=== PATIENT | female | born 1995 | race Caucasian/White ===

== ENCOUNTER → 2022-12-10 15:00 | Outpatient (BNVA) | payer SELFPAY | PROVIDERS: Visit Provider Nurse Practitioner Women's Health | DX: E66.01 Morbid (severe) obesity due to excess calories (principal); Z68.41 Body mass index [BMI] 40.0-44.9, adult; N92.6 Irregular menstruation, unspecified; Z12.4 Encounter for screening for malignant neoplasm of cervix | CPT/HCPCS: 83036; 84146; 84439; 84443; 84702; 88175 ==

== ENCOUNTER 2023-11-20 16:12 | Emergency (ER) | payer SELFPAY ==
--- NOTE | 2023-11-20 16:13 | XRR_ITS ---
PROCEDURE INFORMATION: Exam: XR Chest Exam date and time: 11/20/2023 5:19 PM Age: 28 years old Clinical indication: Pain; Chest pressure; Additional info: Cp TECHNIQUE: Imaging protocol: Radiologic exam of the chest. Views: 1 view. COMPARISON: CT abdomen pelvis w con* [id number] 04/10/2019 8:10 PM FINDINGS: Lungs: Unremarkable. No consolidation. Pleural spaces: Unremarkable. No pleural effusion. No pneumothorax. Heart/Mediastinum: Unremarkable. No cardiomegaly. Bones/joints: Unremarkable. XR/XR chest 1V portable [id number] IMPRESSION: No acute findings.
--- NOTE | 2023-11-20 16:17 | ECG_ITS ---
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 Measurements Intervals [place] Rate: 51 P: 26 OK: 154 QRS: 7 QRSD: 91 T: 26 QT: 465 QTc: 431 Interpretive Statements SINUS BRADYCARDIA WITH SINUS ARRHYTHMIA Diffuse early repolarization change No previous ECG available for comparison Electronically Signed On 11-21-2023 8:34:23 CDT by Vera Soni M.D. [id number]
[2023-11-20 16:35] VITALS: BP 121/79; PULSE 66; RESP 17; TEMP 36.6; O2SAT 98; BMI 37.2
--- NOTE | 2023-11-20 16:39 | ECG_ITS ---
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 Measurements Intervals [place] Rate: 56 P: 31 SC: 148 QRS: 13 QRSD: 94 T: 27 QT: 442 QTc: 429 Interpretive Statements SINUS BRADYCARDIA Compared to ECG 11/20/2023 16:17:33 Sinus arrhythmia no longer present Electronically Signed On 11-21-2023 8:35:23 CDT by Vera Soni M.D. [email or web address]/[id number]
[2023-11-20 17:07] VITALS: BP 105/67; PULSE 65; RESP 16; O2SAT 98
--- NOTE | 2023-11-20 17:15 | ED_ITS ---
HPI - Chest Pain 2 General: Chief Complaint: Chest Pain Stated Complaint: tight feeling around chest sob Time Seen by Provider: 11/20/23 16:58 History of Present Illness: 28-year-old female comes in today for so me tightness in the chest that occurred in 2 separate episodes lasting about an hour today. Patient reports no chronic medical problems. Patient does have an occasional migraine that she uses Excedrin for. 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 Patient reports that she was just sitting when she felt like she had a stitch in her left chest wall. Patient reports it first resolved this morning then she had another episode this afternoon. Patient appears nontoxic. Patient appears in no acute distress. Review of Systems 2 General: Reports: 10 or more systems reviewed and unremarkable except in HPI and below PFSH ED 2 PFSH: Medical History Depression managed with monthly counseling No pertinent past medical history neghx:htn,dm,thyroid,dvt/pe PCP: Doesn't have one Surgical History No pertinent past surgical history Family History Grandmother Breast cancer Maternal Hypertension Maternal Thyroid disease Maternal Family/Other Diabetes Great Aunt/Maternal Denies family history of Colon cancer Ovarian cancer Heart disease Uterine cancer Stroke Social History Smoking and tobacco/nicotine status: never used tobacco/nicotine Alcohol intake: never Substance/Drug Use: never Physical Exam 2 Const: COMMON NORMALS: alert HENMT: COMMON NORMALS: normocephalic HEAD & SCALP: normocephalic MOUTH: Normal oral and palatal mucosa present Neck/C-Spine: COMMON NORMALS: full ROM Chest: COMMONS NORMALS: normal palpation of entire chest wall Resp: COMMON NORMALS: normal respiratory effort and clear to auscultation bilaterally AUSCULTATION: clear to auscultation bilaterally Cardio: COMMON NORMALS: regular rate and regular rhythm RATE: regular rate RHYTHM: regular rhythm Back/Pelvis: COMMON NORMALS: thoracic and lumbar spine normal to inspection Extremity: COMMON NORMALS: full ROM Neuro: SENSORIUM/ORIENTATION: Yes alert Skin: COMMON NORMALS: turgor normal GENERAL SKIN EXAM: turgor normal Course 2 Vital Signs: Vital signs: Vital Signs Temperature 97.9 F 11/20/23 16:35 Pulse Rate 77 11/20/23 19:02 Respiratory Rate 16 11/20/23 19:02 Blood Pressure 105/65 11/20/23 19:02 Pulse Oximetry 94 11/20/23 19:02 Oxygen Delivery Me thod Room Air 11/20/23 19:02 MDM - Chest Pain Medical Decision Making 28-year-old female comes in today for complaints of left chest wall pain. On exam lungs were clear to auscultation. Skin was warm and dry. Vital signs are normal. No palpable tenderness is noted in the chest. No palpable tenderness is noted in the abdomen. Differential diagnosis includes but not limited to costochondritis, chest wall tenderness, muscles pain, ACS unlikely, asthma unlikely, gastritis, GERD, gallbladder disease. White count noted elevated at 18,000. CMP was unremarkable. Troponin was less than 6. Urinalysis showed increased white blood cells and leukocyte esterases. Chest x-ray was normal. EKG was unremarkable. Reviewed exam with patient recommended treatment for UTI. Recommend follow-up with primary care for further evaluation and treatment of chest pain. This time I believe the chest pain may be secondary to the infection but there is seems to be no signs of pneumonia or heart disease. Lab Data 11/20/23 17:00 11/20/23 17:00 Radiology Impressions Chest X-Ray 11/20/23 16:13 IMPRESSION: No acute findings. Laboratory Results WBC 18.04 10^3/uL (3.29-11.43) H 11/20/23 17:00 RBC 4.78 10^6/uL (3.85-5.65) 11/20/23 17:00 Hgb 14.80 g/dL (11.27-16.99) 11/20/23 17:00 Hct 44.8 % (36-47) 11/20/23 17:00 MCV 93.7 fl (85-98) 11/20/23 17:00 MCH 31.0 pg (27-33) 11/20/23 17:00 MCHC 33.0 g/dL (30-55) 11/20/23 17:00 RDW 12.0 % (12.1-15.1) L 11/20/23 17:00 Plt Count 330 10^3/cmm (157-399) 11/20/23 17:00 MPV 10.6 fL (7.4-10.4) H 11/20/23 17:00 Neut % (Auto) 84.1 % 11/20/23 17:00 Lymph % (Auto) 8.8 % 11/20/23 17:00 [place] % (Auto) 6.2 % 11/20/23 17:00 Eos % (Auto) 0.1 % 11/20/23 17:00 Baso % (Auto) 0.3 % 11/20/23 17:00 Neut # (Auto) 15.18 10^3/uL (1.8-7.7) H 11/20/23 17:00 Lymph # (Auto) 1.6 10^3/uL (0.8-4.8) 11/20/23 17:00 [place] # (Auto) 1.1 10^3/uL (0.2-0.9) H 11/20/23 17:00 Eos # (Auto) 0.0 10^3/uL (0.0-0.8) 11/20/23 17:00 Baso # (Auto) 0.1 10^3/uL (0.0-0.1) 11/20/23 17:00 Nucleated RBC % (auto) 0 % 11/20/23 17:00 Nucleated RBCs # 0.0 /100WBC 11/20/23 17:00 Sodium 137 mmol/L (136-145) 11/20/23 17:00 Potassium 4.0 mmol/L (3.5-5.1) 11/20/23 17:00 Chloride 104 mmol/L (98-107) 11/20/23 17:00 Carbon Dioxide 23 mmol/L (22-29) 11/20/23 17:00 Anion Gap 14.0 (5-19) 11/20/23 17:00 BUN 10 mg/dL (6-20) 11/20/23 17:00 Creatinine 0.6 mg/dL (0.5-0.9) 11/20/23 17:00 GFR Calculation 117.4 mL/min (90-130) 11/20/23 17:00 Glucose 160 mg/dL (65-115) H 11/20/23 17:00 Calculated Osmolality 286 mOsm/kg (285-295) 11/20/23 17:00 Calcium 8.7 mg/dL (8.5-10.5) 11/20/23 17:00 Total Bilirubin 0.6 mg/dL (0.15-1.2) 11/20/23 17:00 AST 95 U/L (0-32) H 11/20/23 17:00 ALT 71 U/L (0-33) H 11/20/23 17:00 Alkaline Phosphatase 97 U/L (35-105) 11/20/23 17:00 Troponin T Baseline < 6 ng/L (0-10) 11/20/23 18:37 Total Protein 7.7 g/dL (6.6-8.7) 11/20/23 17:00 Albumin 4.3 g/dL (3.5-5.2) 11/20/23 17:00 Globulin 3.4 g/dL (1.3-4.6) 11/20/23 17:00 Lipase 56 U/L (13-60) 11/20/23 17:00 HCG, Qual Negative (Negative) 11/20/23 17:00 Urine Color Yellow (Yellow) 11/20/23 17:48 Urine Appearance Clear (CLEAR) 11/20/23 17:48 Urine pH 5 (5-7) 11/20/23 17:48 Ur Specific [place] 1.020 (1.005-1.030) 11/20/23 17:48 Urine Protein Neg (Negative) 11/20/23 17:48 Urine Glucose (UA) Norm (Normal) 11/20/23 17:48 Urine Ketones Negative (Negative) 11/20/23 17:48 Urine Blood Neg (Negative) 11/20/23 17:48 Urine Nitrate Negative (Negative) 11/20/23 17:48 Urine Bilirubin Neg (Negative) 11/20/23 17:48 Urine Urobilinogen Norm mg/dL (Negative) 11/20/23 17:48 Ur Leukocyte Esterase 2+ (Negative) H 11/20/23 17:48 Urine RBC None /hpf (0-2) 11/20/23 17:48 Urine WBC 10-15 /hpf (0-5) H 05/26/24 17:48 Ur Squamous Epith Cells 0-4 /hpf (0-5) H 11/20/23 17:48 Amorphous Sediment Not Reportable 11/20/23 17:48 Urine Bacteria Trace /hpf (NONE) 11/20/23 17:48 Urine Mucus 1+ /hpf 11/20/23 17:48 All radiology interpretation(s) finalized by discharge EKG Data EKG 1: I personally reviewed and interpreted this EKG as follows: EKG interpretation date: 11/20/23 EKG interpretation time: 16:30 Prior EKG tracings: not available for review Interpretation: EKG shows a sinus bradycardia with a regular rate at [address] elevation is noted. No ectopy is noted. No prior exam was available for comparison. Computer generated interpretation: Sinus bradycardia with sinus arrhythmia, borderline EKG, unconfirmed report. EKG 2: I personally reviewed and interpreted this EKG as follows: EKG interpretation date: 11/20/23 EKG interpretation time: 17:54 Prior EKG tracings: available for review Interpretation: EKG shows sinus bradycardia with a regular rate at [address] elevation is noted. No ectopy is noted. No changes are noted from prior exam. Computer generated interpretation: Sinus bradycardia, borderline EKG, unconfirmed report. Discharge Plan Discharge Patient Disposition: Home Clinical Impression: Chest pain Qualifiers: Chest pain type: unspecified Qualified Code(s): R07.9 - Chest pain, unspecified UTI (urinary tract infection) Qualifiers: Urinary tract infection type: acute cystitis Hematuria presence: without hematuria Qualified Code(s): N30.00 - Acute cystitis without hematuria Condition: Stable Prescriptions: New cephalexin 500 mg capsule 500 mg PO BID 7 Days Qty: 14 0RF No Action norethindrone-e.estradiol-iron [.5/30 (28)] 1.5 mg-30 mcg (21)/75 mg (7) tablet 1 tab PO DAILY Qty: 84 0RF Discharge Orders: Discharge ED (Routine); Ordered 11/20/23 Ordered By: Jacob Mccrary Discharge Diet: Usual diet Discharge Activity: Increase activity as tolerated Patient Instructions: Chest Pain (ED) Activity Restrictions/Additional Instructions: Drink plenty of water and fluids. Use acetaminophen or ibuprofen for pain. Follow-up with primary care in 3 to 5 days for recheck. Return to ED for worsening symptoms such as uncontrolled pain, fever greater than 100.4, or increasing shortness of breath. Coding Level of Care Code ED Manufacture Specialist for Bronwyn Lyman
[2023-11-20 17:21] LABS: Basophils # 0.1 10^3/uL (0.0-0.1); Basophils % 0.3 %; Eosinophils % 0.1 %; Hematocrit 44.8 % (36-47); Lymphocytes # 1.6 10^3/uL (0.8-4.8); Lymphocytes % 8.8 %; Mean Corpuscular Volume 93.7 fl (85-98); Mean Platelet Volume 10.6 fL (7.4-10.4); Monocytes # 1.1 10^3/uL (0.2-0.9); Monocytes % 6.2 %; Neutrophils # 15.18 10^3/uL (1.8-7.7); Neutrophils % 84.1 %; Nucleated Red Blood Cells % 0 %; Platelet Count 330 10^3/cmm (157-399); Red Blood Count 4.78 10^6/uL (3.85-5.65); White Blood Count 18.04 10^3/uL (3.29-11.43)
[2023-11-20 17:28] LABS: HCG, Serum Qual Negative (Negative)
[2023-11-20 17:30] VITALS: BP 116/73; PULSE 64; RESP 16; O2SAT 97
[2023-11-20 17:32] LABS: Alanine Aminotransferase 71 U/L (0-33); Albumin Level 4.3 g/dL (3.5-5.2); Alkaline Phosphatase 97 U/L (35-105); Aspartate Amino Transferase 95 U/L (0-32); Blood Urea Nitrogen 10 mg/dL (6-20); Calcium 8.7 mg/dL (8.5-10.5); Carbon Dioxide 23 mmol/L (22-29); Chloride 104 mmol/L (98-107); Creatinine Clr Calc Pharmacy 150.5125; Globulin 3.4 g/dL (1.3-4.6); Glomerular Filtration Rate 117.4 mL/min (90-130); Glucose 160 mg/dL (65-115); Lipase 56 U/L (13-60); Osmolality Calculated 286 mOsm/kg (285-295); Sodium 137 mmol/L (136-145); Total Bilirubin 0.6 mg/dL (0.15-1.2); Total Protein 7.7 g/dL (6.6-8.7)
[2023-11-20 18:08] LABS: Add Urine Microscopic? YES; Bilirubin Urine Neg (Negative); Blood Urine Neg (Negative); Glucose Urine UA Norm (Normal); Ketones Urine Negative (Negative); Leukocyte Esterase Urine 2+ (Negative); Nitrate Urine Negative (Negative); Protein Urine Neg (Negative); Urine Appearance Clear (CLEAR); Urine Color Yellow (Yellow); Urobilinogen Urine Norm (Negative); pH Urine 5 (5-7)
[2023-11-20 18:09] LABS: Add Urine Culture? No; Bacteria Urine TRACE /hpf; Mucus Urine 1+ /hpf; Squamous Epithelial Cell Urine 0-4 /hpf (0-5)
[2023-11-20 18:30] VITALS: BP 105/72; PULSE 64; O2SAT 96
[2023-11-20 19:02] VITALS: BP 105/65; PULSE 77; RESP 16; O2SAT 94
[2023-11-20 19:08] LABS: Troponin(5th) Baseline < 6 ng/L (0-10)
== END 2023-11-20 19:19 | disposition home or self-care (01) ==
PROVIDERS: Emergency Provider Nurse Practitioner Family
DX: R07.9 Chest pain, unspecified (principal); N30.00 Acute cystitis without hematuria; R00.1 Bradycardia, unspecified
CPT/HCPCS: 71045; 80053; 81001; 83690; 84484; 84703; 85025; 93005; 99285